=== PATIENT | female | born 1935 | race Caucasian/White ===

== ENCOUNTER 2019-05-19 07:18 | Emergency (ER) | payer OTHER ==
[~2019-05-19] VITALS: Ht 165.1 cm; Wt 56.2 kg
[2019-05-19] MEDS ORDERED: GRALISE600 MG PO (07:27)
[2019-05-19] MEDS ORDERED: AMLODIPINE-OLM1 EACH PO (07:27)
[2019-05-19] MEDS ORDERED: HORIZANT300 MG PO (07:28)
== END 2019-05-19 13:05 | disposition home or self-care (01) ==
LOC: ER 07:18
DX: J04.0 Acute laryngitis (principal)

== ENCOUNTER 2022-07-29 15:07 | Emergency (ER) | payer OTHER ==
[~2022-07-29] VITALS: Ht 154.9 cm; Wt 54.4 kg
[~2022-07-29 15:07] MED LIST: AMLODIPINE-OLM1 EACH PO; GRALISE600 MG PO; HORIZANT300 MG PO
== END 2022-07-29 20:36 | disposition home or self-care (01) ==
LOC: ER 15:07
DX: J40 Bronchitis, not specified as acute or chronic (principal); B34.9 Viral infection, unspecified; Z91.013 Allergy to seafood; I10 Essential (primary) hypertension; G47.30 Sleep apnea, unspecified